=== PATIENT | male | born 1945 | race Caucasian/White ===

== ENCOUNTER 2017-05-11 13:53 | Outpatient (RCR) | payer MEDICARE, BC ==
[~2017-05-11 13:53] MED LIST: ALLOPURINOL100 MG PO; ALTACE 10MG TAB10 MG PO; ALTACE10 M1 PO; ALTACE10 MG PO; ASPIRIN 32325 MG/TAB PO; ASPIRIN E.C. 8181 MG PO; CARVEDILOL; COLACE 100100 MG/CAP PO; COREG25 MG PO; CRESTOR40 MG PO; FLOMAX 0.40.4 MG/CAP PO; GLUCOPHAGE XR500 M1 PO; GLUCOPHAGE500 MG/TAB PO; IMDUR 60MG60 MG/TAB PO; IMDUR60 MG PO; LIPITOR80 MG PO; LOVAZA1 GM PO; METFORMIN500 MG PO; NIASPAN500 MG PO; NITROGLYCERIN SL; NITROSTAT0.4 MG/TAB SL; NORCO 325 MG-51 TAB PO; NORVASC 10MG10 MG PO; PERCOCET 325 MG1 TA2 PO; PLAVIX 75MG TAB75 MG PO; PYRIDIUM200 M1 PO; TEKTURNA HCT150/12.5; TEKTURNA HCT150/12.5 PO; VITAMIN D32000 IU PO; ZETIA 10MG TAB10 MG PO; ZOFRAN 4MG T4 MG/TAB PO; ZYLOPRIM 300MG300 MG PO; [UNRECOGNIZED DRUG - CODE] PO
[2017-05-13] MEDS ORDERED: INDOCIN 25MG CA25 MG PO (12:18)
[2017-05-13] MEDS ORDERED: CARDIOVID PLUS1 SGL PO (12:22)
== END 2017-07-05 | disposition home or self-care (01) ==
LOC: COL.CR
DX: Z48.812 Encounter for surgical aftercare following surgery on the circulatory system (principal); Z95.5 Presence of coronary angioplasty implant and graft; I25.10 Atherosclerotic heart disease of native coronary artery without angina pectoris

== ENCOUNTER 2017-05-13 11:33 | Day surgery (SDC) | payer MEDICARE, BC ==
[2009-10-17 23:25] VITALS: BP 117/59
[~2017-05-13] VITALS: Ht 172.7 cm; Wt 90.7 kg
[2017-05-13] VITALS (7 sets, daily range): BP systolic 150–164; BP diastolic 75–91; PULSE 54–62; TEMP 97.8–98.7
[2017-05-13 12:01] LABS: HEMATOCRIT 40.4 % (42.0-52.0); HEMOGLOBIN 13.2 g/dl (13.5-18.0); MEAN CELL VOLUME 84 fl (80.0-100.0); MEAN CORPUSCULAR HEMOGLOBIN 28 pg (27.0-31.0); MEAN CORPUSCULAR HGB CONC 33 g/dl (33.0-37.0); MEAN PLATELET VOLUME 11.3 fl (7.4-10.4); PLATELET COUNT 112 K/mm3 (130-400); REDCELL DISTRIBUTION WIDTH-CV 14.4 % (11.5-14.5); WHITE BLOOD COUNT 4.5 K/mm3 (4.8-10.8)
[2017-05-13 12:07] LABS: INR 1.2 (0.8-3.0); PROTHROMBIN TIME 13.2 SECONDS (9.7-12.8)
[2017-05-13 12:17] LABS: CALCIUM 10.8 mg/dL (8.4-10.2); CREATININE, serum 1.05 mg/dL (0.66-1.25); POTASSIUM 4.6 mmol/L (3.4-5.0)
[2017-05-13] MEDS ORDERED: INDOCIN 25MG CA25 MG PO (12:18)
[2017-05-13] MEDS ORDERED: CARDIOVID PLUS1 SGL PO (12:22)
[2017-05-14 03:09] VITALS: BP 108/66; BP 159/77; PULSE 59; PULSE 67; TEMP 97.8
== END 2017-05-14 08:00 | disposition home or self-care (01) ==
LOC: COL.CAR 11:33 → MEDICAL 14:36 → COL.CAR 05-14 08:00
PROVIDERS: Internal Medicine Interventional Cardiology
DX: I49.5 Sick sinus syndrome (principal); Z79.01 Long term (current) use of anticoagulants; R42 Dizziness and giddiness; I25.10 Atherosclerotic heart disease of native coronary artery without angina pectoris; I77.1 Stricture of artery; I49.3 Ventricular premature depolarization; E78.1 Pure hyperglyceridemia; Z95.5 Presence of coronary angioplasty implant and graft; I10 Essential (primary) hypertension; G47.30 Sleep apnea, unspecified; M10.9 Gout, unspecified; E66.9 Obesity, unspecified
CPT/HCPCS: OP; C1785; C1894; C1898; J0690; J2250; J3010; J7030

== ENCOUNTER 2017-08-31 12:28 | Outpatient (RCR) | payer MEDICARE, BC ==
[~2017-08-31 12:28] MED LIST changes: +CARDIOVID PLUS1 SGL PO; +INDOCIN 25MG CA25 MG PO
== END 2017-10-11 | disposition home or self-care (01) ==
LOC: COL.CR
DX: Z48.812 Encounter for surgical aftercare following surgery on the circulatory system (principal); Z95.5 Presence of coronary angioplasty implant and graft; I25.119 Atherosclerotic heart disease of native coronary artery with unspecified angina pectoris

== ENCOUNTER 2018-11-26 00:08 | Inpatient (IN) | payer MEDICARE, BC ==
[~2018-11-26] VITALS: Ht 172.7 cm; Wt 85.8 kg
[2018-11-26 01:09] LABS: BASO % 0.4 % (0.0-2.0); EOS % 0.8 % (0-4.0); GRAN # 3.7 (1.4-6.5); GRAN % 75.2 % (42.2-75.2); HEMATOCRIT 37.4 % (42.0-52.0); HEMOGLOBIN 12.6 g/dl (13.5-18.0); LYMPH # 0.9 (1.2-3.4); LYMPH % 18.5 % (20.0-51.0); MEAN CELL VOLUME 86 fl (80.0-100.0); MEAN CORPUSCULAR HEMOGLOBIN 29 pg (27.0-31.0); MEAN CORPUSCULAR HGB CONC 34 g/dl (33.0-37.0); MEAN PLATELET VOLUME 10.2 fl (7.4-10.4); MONO # 0.2 (0.1-0.6); MONO % 4.5 % (1.7-9.3); PLATELET COUNT 115 K/mm3 (130-400); RED BLOOD COUNT 4.36 M/mm3 (4.20-5.60)
[2018-11-26 01:27] LABS: INR 1.1 (0.8-3.0); PROTHROMBIN TIME 12.8 SECONDS (9.7-12.8)
[2018-11-26 01:36] LABS: ALANINE AMINOTRANSFERASE 38 U/L (21-72); ALBUMIN 4.1 gm/dL (3.5-5.0); ALKALINE PHOSPHATASE 89 U/L (50-136); ANION GAP 9 mmol/L (7-16); AST,SGOT 104 U/L (15-37); BLOOD UREA NITROGEN 31 mg/dL (9-20); CALCIUM 10.6 mg/dL (8.4-10.2); CARBON DIOXIDE 22 mmol/L (22-30); CHLORIDE 106 mmol/L (98-107); CREATINE KINASE 39 U/L (55-170); CREATININE, serum 1.27 mg/dL (0.66-1.25); GLUCOSE 173 mg/dL (74-106); LIPASE 61 U/L (23-300); POTASSIUM 4.2 mmol/L (3.4-5.0); SODIUM 137 mmol/L (137-145); TOTAL PROTEIN 7.1 gm/dL (6.4-8.2)
[2018-11-26 01:39] LABS: C-REACTIVE PROTEIN < 0.5 mg/dL (0.0-0.9)
[2018-11-26 01:52] LABS: TROPONIN-I < 0.012 ng/mL (0.000-0.035)
[2018-11-26 03:15] LABS: COLLECTION METHOD CLEAN CATCH
[2018-11-26 03:21] LABS: PH 6 (5-8); SQUAMOUS EPITHELIAL None Seen /hpf; URINE APPEARANCE Clear; URINE BACTERIA None Seen /hpf; URINE BILIRUBIN Negative (NEGATIVE); URINE BLOOD Negative (NEGATIVE); URINE COLOR Yellow; URINE GLUCOSE 3+ (NEGATIVE); URINE KETONE Trace (NEGATIVE); URINE LEUKOCYTE ESTERASE Negative (NEGATIVE); URINE NITRATE Negative (NEGATIVE); URINE PROTEIN(semi-quant) 1+ (NEGATIVE); URINE RBC 0-2 /hpf; URINE UROBILINOGEN Negative (NEGATIVE)
[2018-11-26 04:15] VITALS: BP 173/73; PULSE 64; TEMP 97.9
[2018-11-26 05:28] LABS: TROPONIN-I < 0.012 ng/mL (0.000-0.035)
[2018-11-26 07:21] VITALS: BP 142/73; PULSE 61; TEMP 98.2
[2018-11-26 12:30] VITALS: BP 159/70; PULSE 61; TEMP 99.1
--- NOTE | 2018-11-26 12:32 | NUR ---
Patient independent in room. Echo was completed this am per orders. rounded. 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 Patient remains NPO. His at bedside. He continues to deny pain. Ivf and antibiotic per orders. He is waiting on doctor Katie to see him.
--- NOTE | 2018-11-26 13:35 | NUR ---
Patient up and ambulated the halls with his . Waiting to see I reassusred him he will be seen.
--- NOTE | 2018-11-26 14:39 | NUR ---
rounded. Orders obtained. A full liquid dinner ordered & ice water provided. Plans for outpatient gallbladder removal. Dr. Wilkerson made aware. Will monitor
[2018-11-26 16:06] VITALS: BP 145/56; PULSE 65; TEMP 97.7
--- NOTE | 2018-11-26 16:24 | NUR ---
Patient tolerated full liquids, no increased pain or nausea. He ambulated the halls again with his . Rerumed home medications per orders & patietn home regiement. Will continue to monitor.
--- NOTE | 2018-11-26 16:43 | NUR ---
Coopermaurilio refused insulin at this time. He normally takes metformin at home. He know he can not claritza due to CT scan. Did not want to take novolog at this time
[2018-11-26 20:00] VITALS: BP 159/72; PULSE 68; TEMP 98
[2018-11-26 23:24] VITALS: BP 152/60; PULSE 65; TEMP 99.4
[2018-11-27] VITALS (16 sets, daily range): BP systolic 127–150; BP diastolic 51–71; PULSE 30–68; TEMP 97.1–98.5
--- NOTE | 2018-11-27 04:48 | NUR ---
RESTING QUIETLY. NO c/o PAIN. NO N/V. NO INSULIN REQUIRED. INDEPENDENT IN ROOM.
--- NOTE | 2018-11-27 08:00 | NUR ---
PATIENT IS SITTING UP IN BED WITH HIS PRESENT AT THE BEDSIDE. PATIENT IS A&O. VSS. TELE IN PLACE. BOWEL SOUNDS ACTIVE ALL FOUR QUADRANTS. PATIENT TOLERATING DIET WITHOUT ANY COMPLAINTS OF N/V. POSITIVE PEDAL PULSES EQUAL BILATERALLY. IV FLUIDS INFUSING TO LEFT AC IV VIA PUMP. CALL LIGHT WITHIN REACH. PATIENT DENIES PAIN AT THIS TIME.
[2018-11-27 08:11] LABS: BASO % 0.3 % (0.0-2.0); EOS # 0.1 (0.0-0.7); EOS % 1.5 % (0-4.0); GRAN # 3.1 (1.4-6.5); GRAN % 77.4 % (42.2-75.2); HEMOGLOBIN 12.1 g/dl (13.5-18.0); LYMPH # 0.5 (1.2-3.4); LYMPH % 12.7 % (20.0-51.0); MEAN CELL VOLUME 87 fl (80.0-100.0); MEAN CORPUSCULAR HEMOGLOBIN 29 pg (27.0-31.0); MEAN CORPUSCULAR HGB CONC 33 g/dl (33.0-37.0); MONO # 0.3 (0.1-0.6); MONO % 7.6 % (1.7-9.3); PLATELET COUNT 108 K/mm3 (130-400); RED BLOOD COUNT 4.24 M/mm3 (4.20-5.60); REDCELL DISTRIBUTION WIDTH-CV 15.3 % (11.5-14.5)
[2018-11-27 08:18] LABS: ALBUMIN 3.8 gm/dL (3.5-5.0); BILIRUBIN,TOTAL 3.7 mg/dL (0.0-1.0); CALCIUM 10.1 mg/dL (8.4-10.2); CREATININE, serum 1.31 mg/dL (0.66-1.25); POTASSIUM 4.1 mmol/L (3.4-5.0); TOTAL PROTEIN 6.9 gm/dL (6.4-8.2)
[2018-11-27 08:25] LABS: HEMATOCRIT 36.9 % (42.0-52.0)
--- NOTE | 2018-11-27 09:22 | NUR ---
MIS and SW student met with the patient and patient's , Kristie, to discuss discharge plan. The patient lives in [place] with his . He reports independence with ADLs and has a cane. The patient's PCP is Dr. Anand Keys and he receives his medications at [facility]. He reports no difficulties obtaining his meds. The patient does not have advanced directives in EMR, but he states that he does have them completed and at home. The patient plans to return home with his upon discharge. No additional needs at this time.
--- NOTE | 2018-11-27 09:26 | NUR ---
ERCP SCHEDULED FOR 1500 ON 11/27/[address] JAIMES.
--- NOTE | 2018-11-27 09:27 | NUR ---
ANESTHESIA PAGED FOR ERCP CONSULT.
--- NOTE | 2018-11-27 13:00 | NUR ---
PATIENT SHOWERED AND READY FOR ERCP. CONSENT SIGNED AND ON PATIENT CHART.
--- NOTE | 2018-11-27 13:45 | NUR ---
PATIENT CONSENT FOR LAP CHOLEY SIGNED AND ON PATIENT CHART.
--- NOTE | 2018-11-27 15:15 | NUR ---
PATIENT TAKEN TO PERIOP VIA CART BY SLOAN BUSTOS. WILL WAIT FOR ARRIVAL BACK TO ROOM 342 FROM PACU.
--- NOTE | 2018-11-27 18:10 | NUR ---
PATIENT ARRIVED BACK TO ROOM 342 VIA CART FROM PACU. PATIENT DROWSY BUT EASILY AROUSABLE. POST-OP VITAL SIGNS STABLE. AND SON PRESENT AT THE BEDSIDE. PATIENT DENIES ANY NEEDS AT THIS TIME.
--- NOTE | 2018-11-27 19:12 | NUR ---
REPORT GIVEN TO SLOAN SERNA.
--- NOTE | 2018-11-27 20:00 | NUR ---
Pt. sitting up at bedside with . Pt. is A&OX3, assessment complete. IV to lt. ac patent, IV fluids infusing per orders. Post op vitals in progress. Vitals stable. Pt. denies pain or other needs at this time. Call light within reach.
--- NOTE | 2018-11-27 20:33 | NUR ---
Correia catheter plugging up. Manually irrigated the Correia got several clots out. Increased irrigation rate. Urine remains red/brown bloody color. Pt. also having bladder spasms, Gave Levsin. Pt. reports bladder pressure is better. Will continue to monitor.
[2018-11-28 00:22] VITALS: BP 153/58; BP 153/66; PULSE 66; TEMP 99.2
[2018-11-28 05:01] VITALS: BP 142/56; PULSE 67; TEMP 97.3
[2018-11-28 06:24] LABS: ALBUMIN 3.1 gm/dL (3.5-5.0); BILIRUBIN,TOTAL 2.3 mg/dL (0.0-1.0); CALCIUM 9.8 mg/dL (8.4-10.2); CREATININE, serum 1.18 mg/dL (0.66-1.25); POTASSIUM 3.4 mmol/L (3.4-5.0); TOTAL PROTEIN 5.9 gm/dL (6.4-8.2)
--- NOTE | 2018-11-28 06:29 | NUR ---
Pt. slept well through the night. Pt. remains A&OX3. IV to lt. ac remains patent, IV fluids infusing per orders. Pt. denies further needs, call light within reach.
[2018-11-28 07:41] LABS: BASO % 0.3 % (0.0-2.0); EOS % 0.3 % (0-4.0); GRAN # 3.2 (1.4-6.5); GRAN % 89.2 % (42.2-75.2); HEMOGLOBIN 10.6 g/dl (13.5-18.0); LYMPH # 0.2 (1.2-3.4); LYMPH % 5.5 % (20.0-51.0); MEAN CELL VOLUME 86 fl (80.0-100.0); MEAN CORPUSCULAR HEMOGLOBIN 29 pg (27.0-31.0); MEAN CORPUSCULAR HGB CONC 33 g/dl (33.0-37.0); MEAN PLATELET VOLUME 11.1 fl (7.4-10.4); MONO # 0.2 (0.1-0.6); MONO % 4.4 % (1.7-9.3); PLATELET COUNT 85 K/mm3 (130-400); RED BLOOD COUNT 3.69 M/mm3 (4.20-5.60); REDCELL DISTRIBUTION WIDTH-CV 15.6 % (11.5-14.5)
[2018-11-28 07:42] LABS: HEMATOCRIT 31.8 % (42.0-52.0)
--- NOTE | 2018-11-28 07:52 | NUR ---
Patient resting in bed with eyes closed when this nurse entered the room. IVF running into left forearm. IV remains free from redness, swelling, drainage. Denies pain at this time. Currently ordering clear liquids in preparation to go NPO at 0800.
[2018-11-28 08:55] VITALS: BP 132/52; PULSE 61; TEMP 97.6
[2018-11-28] MEDS ORDERED: LEVAQUIN 5500 MG/TA1 PO (09:55)
--- NOTE | 2018-11-28 11:10 | NUR ---
Patient assisted to personal vehicle with surgical staff, spouse, wheelchair, and all belongings. Discharge instructions given to patient.
== END 2018-11-28 11:12 | disposition home or self-care (01) | DRG 445 ==
LOC: COL.ER 00:08 → SURG 03:34
PROVIDERS: Emergency Medicine; Internal Medicine; Internal Medicine Gastroenterology; Nurse Practitioner Family; ADMIT Internal Medicine
PROC: 0F798ZZ Dilation of Common Bile Duct, Via Natural or Artificial Opening Endoscopic (ICD-10-PCS; 2018-11-27)
PROC: 0FC98ZZ Extirpation of Matter from Common Bile Duct, Via Natural or Artificial Opening Endoscopic (ICD-10-PCS; principal; 2018-11-27 15:30)
DX: K80.62 Calculus of gallbladder and bile duct with acute cholecystitis without obstruction (principal); N17.9 Acute kidney failure, unspecified; Q89.09 Congenital malformations of spleen; I12.9 Hypertensive chronic kidney disease with stage 1 through stage 4 chronic kidney disease, or unspecified chronic kidney disease; E11.22 Type 2 diabetes mellitus with diabetic chronic kidney disease; N18.9 Chronic kidney disease, unspecified; I25.10 Atherosclerotic heart disease of native coronary artery without angina pectoris; Z95.5 Presence of coronary angioplasty implant and graft; E78.5 Hyperlipidemia, unspecified; Z85.47 Personal history of malignant neoplasm of testis; I16.0 Hypertensive urgency; D64.9 Anemia, unspecified; D69.6 Thrombocytopenia, unspecified; Z95.0 Presence of cardiac pacemaker; Z79.01 Long term (current) use of anticoagulants; I44.7 Left bundle-branch block, unspecified
CPT/HCPCS: 99223-AI; 99232-AI; 99239; C1769; C2625; C9113; G0378; J1815; J2250; J2405; J2543; J2704; J3010; J7030; Q9967

== ENCOUNTER 2018-12-05 10:37 | Day surgery (SDC) | payer MEDICARE, BC ==
[2009-10-17 23:25] VITALS: BP 117/59
[~2018-12-05] VITALS: Ht 172.7 cm; Wt 82.5 kg
[~2018-12-05 10:37] MED LIST changes: +LEVAQUIN 5500 MG/TA1 PO
[2018-12-05 11:20] VITALS: BP 138/70; PULSE 75; TEMP 97.4
[2018-12-05 11:33] LABS: BASO % 0.4 % (0.0-2.0); EOS # 0.1 (0.0-0.7); EOS % 1.6 % (0-4.0); GRAN # 3.7 (1.4-6.5); GRAN % 72.4 % (42.2-75.2); HEMATOCRIT 37.2 % (42.0-52.0); HEMOGLOBIN 11.7 g/dl (13.5-18.0); LYMPH % 19.3 % (20.0-51.0); MEAN CELL VOLUME 89 fl (80.0-100.0); MEAN CORPUSCULAR HEMOGLOBIN 28 pg (27.0-31.0); MEAN CORPUSCULAR HGB CONC 32 g/dl (33.0-37.0); MEAN PLATELET VOLUME 10.5 fl (7.4-10.4); MONO # 0.3 (0.1-0.6); MONO % 5.7 % (1.7-9.3); PLATELET COUNT 161 K/mm3 (130-400); RED BLOOD COUNT 4.17 M/mm3 (4.20-5.60); REDCELL DISTRIBUTION WIDTH-CV 15.7 % (11.5-14.5)
[2018-12-05] MEDS ORDERED: PLAVIX 75MG TAB75 MG PO (11:39)
[2018-12-05] MEDS ORDERED: ASPIRIN E.C. 8181 MG PO (11:40)
[2018-12-05] MEDS ORDERED: RANEXA 500MG T500 MG PO (11:41)
[2018-12-05 11:42] LABS: BILIRUBIN,TOTAL 0.6 mg/dL (0.0-1.0); CALCIUM 11.1 mg/dL (8.4-10.2); CREATININE, serum 1.69 (0.66-1.25); POTASSIUM 4.9 mmol/L (3.4-5.0); TOTAL PROTEIN 7.5 gm/dL (6.4-8.2)
[2018-12-05] MEDS ORDERED: JARDIANCE10 PO (11:47)
[2018-12-05] MEDS ORDERED: UROCIT-K 5540 MG/TAB PO (11:48)
[2018-12-05] MEDS ORDERED: CRESTOR40 MG PO (11:49)
[2018-12-05] MEDS ORDERED: ZETIA 10MG TAB10 MG PO (11:50)
[2018-12-05] MEDS ORDERED: LOVAZA1 GM PO (11:50)
[2018-12-05] MEDS ORDERED: FISH OIL 1000MG1 CAP PO (11:52)
[2018-12-05] MEDS ORDERED: CARDI-OMEGA1000 MG PO (11:52)
[2018-12-05] MEDS ORDERED: MULTI VITAMINS1 TAB PO (11:53)
[2018-12-05] MEDS ORDERED: VITAMIN D32000 I1 PO (11:54)
[2018-12-05] MEDS ORDERED: VTAMINC250TA PO (11:55)
[2018-12-05] MEDS ORDERED: CHROMIUM PO (11:56)
[2018-12-05] MEDS ORDERED: THE MEDICINE S200 M2 PO (11:56)
[2018-12-05] MEDS ORDERED: CARDIO TAB PO (12:27)
[2018-12-05 15:15] VITALS: BP 143/70; PULSE 62; TEMP 97.3
--- NOTE | 2018-12-05 15:15 | NUR ---
TO RM 2 PER CART FROM PACU. ALERT ORIETNED X3 TALKING TO AND STAFF. RECEIVED WATER AND TAKING SIPS. 5 BANDAIDES CLEAN DRY INTACT. C/O PAIN 10/15 AT THIS TIME. DENIES N/V
[2018-12-05] MEDS ORDERED: NORCO 325 MG-51 TAB PO (15:26)
[2018-12-05 15:30] VITALS: BP 143/67; PULSE 61
--- NOTE | 2018-12-05 15:30 | NUR ---
RECEIVED SUGAR FREE JELLO SAT UP TO COMFORT AND HIGH ENOUGH TO EAT.
[2018-12-05 15:45] VITALS: BP 145/70; PULSE 59
--- NOTE | 2018-12-05 15:45 | NUR ---
STILL STATES PAIN IS 2/10- AND DENIES NEED FOR PAIN MED
[2018-12-05 16:00] VITALS: BP 130/67; PULSE 61
--- NOTE | 2018-12-05 16:00 | NUR ---
ATE 100% AND TOERATED WELL UP AMBULATED VERY SLOWLY TO BATHROOM WITH ASSIST VOIDED AND TOLERATED WELL
--- NOTE | 2018-12-05 16:15 | NUR ---
RECEIVED DISCHARGE INSTRUCTIONS AND VERBALIZED UNDERSTANDING DISCONTINUED IV AND INT-CATHTER INTACT COVERED IV SITE WITH COTTON BALL AND COVERED WITH COBAN.
--- NOTE | 2018-12-05 16:35 | NUR ---
DISCHARGED PER WC BY NURSING STAFF TO PRIVATE CAR IN CARE OF -DAISY
== END 2018-12-05 16:44 | disposition home or self-care (01) ==
LOC: SDCO 10:37
PROVIDERS: Surgery
DX: K80.10 Calculus of gallbladder with chronic cholecystitis without obstruction (principal); I25.119 Atherosclerotic heart disease of native coronary artery with unspecified angina pectoris; E11.22 Type 2 diabetes mellitus with diabetic chronic kidney disease; I12.9 Hypertensive chronic kidney disease with stage 1 through stage 4 chronic kidney disease, or unspecified chronic kidney disease; N18.9 Chronic kidney disease, unspecified; Z79.4 Long term (current) use of insulin; Z79.84 Long term (current) use of oral hypoglycemic drugs; Z95.5 Presence of coronary angioplasty implant and graft; Z79.899 Other long term (current) drug therapy; Z79.82 Long term (current) use of aspirin; G47.33 Obstructive sleep apnea (adult) (pediatric); Z85.47 Personal history of malignant neoplasm of testis; Z87.442 Personal history of urinary calculi; N40.0 Benign prostatic hyperplasia without lower urinary tract symptoms; M10.9 Gout, unspecified; E78.00 Pure hypercholesterolemia, unspecified
CPT/HCPCS: J1170; J2405; J2704; J3010; J7030

== ENCOUNTER 2019-01-12 10:01 | Day surgery (SDC) | payer MEDICARE, BC ==
[2009-10-17 23:25] VITALS: BP 117/59
[~2019-01-12] VITALS: Ht 172.7 cm; Wt 85.0 kg
[~2019-01-12 10:01] MED LIST changes: +CARDI-OMEGA1000 MG PO; +CHROMIUM PO; +FISH OIL 1000MG1 CAP PO; +JARDIANCE10 PO; +MULTI VITAMINS1 TAB PO; +RANEXA 500MG T500 MG PO; +THE MEDICINE S200 M2 PO; +UROCIT-K 5540 MG/TAB PO; +VITAMIN D32000 I1 PO; +VTAMINC250TA PO
[2019-01-12] MEDS ORDERED: PROTONIX 40MG T40 MG PO (11:06)
[2019-01-12 11:10] VITALS: BP 148/82; PULSE 64; TEMP 98.3
[2019-01-12 12:50] VITALS: BP 129/76; PULSE 63; TEMP 98
--- NOTE | 2019-01-12 12:50 | NUR ---
Pt arrived to endo room 1 from procedure. Pt A/Ox4. Pt denies any pain or nausea. Pt's in room. Pt request water at this time. VSS.
--- NOTE | 2019-01-12 12:51 | NUR ---
Report received from SLOAN [place].
[2019-01-12 13:05] VITALS: BP 155/80; PULSE 60; TEMP 98
--- NOTE | 2019-01-12 13:05 | NUR ---
Pt tolerating sips of water. Denies any pain or nausea. Pt's in room. VSS.
[2019-01-12 13:20] VITALS: BP 143/79; PULSE 60; TEMP 98
[2019-01-12 13:35] VITALS: BP 152/84; PULSE 66; TEMP 97.5
--- NOTE | 2019-01-12 14:00 | NUR ---
Pt denies any abd pain or nausea. Discussed discharge instructions, procedure information and med list with pt. Answered all questions to pt's satisfaction. Signed paperwork in chart.
--- NOTE | 2019-01-12 14:08 | NUR ---
Pt discharged from [facility]. Pt left unit via WC to private vehicle driven by spouse.
== END 2019-01-12 14:08 | disposition home or self-care (01) ==
LOC: SDCO 10:01
DX: K83.8 Other specified diseases of biliary tract (principal); K80.20 Calculus of gallbladder without cholecystitis without obstruction; I12.9 Hypertensive chronic kidney disease with stage 1 through stage 4 chronic kidney disease, or unspecified chronic kidney disease; E11.22 Type 2 diabetes mellitus with diabetic chronic kidney disease; N18.9 Chronic kidney disease, unspecified; Z91.048 Other nonmedicinal substance allergy status; Z88.8 Allergy status to other drugs, medicaments and biological substances; G47.33 Obstructive sleep apnea (adult) (pediatric); Z96.89 Presence of other specified functional implants; Z90.49 Acquired absence of other specified parts of digestive tract; M10.9 Gout, unspecified; Z79.02 Long term (current) use of antithrombotics/antiplatelets; Z79.82 Long term (current) use of aspirin; Z79.84 Long term (current) use of oral hypoglycemic drugs; I25.10 Atherosclerotic heart disease of native coronary artery without angina pectoris; Z95.0 Presence of cardiac pacemaker; Z87.442 Personal history of urinary calculi; D64.9 Anemia, unspecified
CPT/HCPCS: C1769; J2704; J7030; Q9967

== ENCOUNTER 2021-04-24 08:00 | Day surgery (SDC) | payer MEDICARE, BC ==
[2009-10-17 23:25] VITALS: BP 117/59
[~2021-04-24] VITALS: Ht 172.7 cm; Wt 78.8 kg
[~2021-04-24 08:00] MED LIST changes: +NORVASC 5MG5 MG/TAB PO; +PROTONIX 40MG T40 MG PO; +VASCEPA1 GM PO
[2021-04-24 09:22] VITALS: BP 112/80; PULSE 65; TEMP 97.4
[2021-04-24 10:30] VITALS: BP 96/60; PULSE 69; TEMP 97.6
--- NOTE | 2021-04-24 10:30 | NUR ---
PATIENT TRANSPORTED PER CART FROM GI SUITE TO BAY 9 ACCOMPANIED BY MARY RN. PATIENT AMBULATED FROM CART TO CHAIR WITH SLOW STEADY GAIT. WITH 1 ASSIST. PATIENT TALKS WITH STAFF. IN ROOM. PATIENT GIVEN MUFFIN AND JUICE. 5440 TALKS WITH PATIENT AND .
[2021-04-24 10:45] VITALS: BP 118/65; PULSE 62
[2021-04-24 11:00] VITALS: BP 120/71; PULSE 61
[2021-04-24 11:05] VITALS: BP 96/60; PULSE 68
--- NOTE | 2021-04-24 11:15 | NUR ---
VSS ON ROOM AIR. PATIENT TOLERATES MUFFIN AND JUICE WITHOUT PROBLEMS. 1110 DISCHARGE INSTRUCTIONS GIVEN VERBAL AND DISCHARGE PACKET GIVEN TO . QUESTIONS ANSWERED AND PATIENT VOICED UNDERSTANDING. PATIENT CHANGES INTO STREET CLOTHES. 1120 PATIENT DISCHARGED PER WHEEL CHAIR ACCOMPANED BY AMB RN TO PRIVATE VECHILE DRIVEN BY .
== END 2021-04-24 11:10 | disposition home or self-care (01) ==
LOC: SDCO 08:00
DX: Z12.11 Encounter for screening for malignant neoplasm of colon (principal); D12.0 Benign neoplasm of cecum; K51.40 Inflammatory polyps of colon without complications; K57.30 Diverticulosis of large intestine without perforation or abscess without bleeding; N40.0 Benign prostatic hyperplasia without lower urinary tract symptoms; I10 Essential (primary) hypertension; D69.6 Thrombocytopenia, unspecified; M10.9 Gout, unspecified; I73.9 Peripheral vascular disease, unspecified; E78.2 Mixed hyperlipidemia; G47.33 Obstructive sleep apnea (adult) (pediatric); K21.9 Gastro-esophageal reflux disease without esophagitis; E11.22 Type 2 diabetes mellitus with diabetic chronic kidney disease; N18.6 End stage renal disease
CPT/HCPCS: J2704; J7030